=== PATIENT | female | born 2005 | race Two or more races ===

== ENCOUNTER 2025-02-27 07:23 | Outpatient (CLI) | payer BC ==
--- NOTE | 2025-03-01 06:11 | DVH ---
Procedure: NM GASTRIC EMPTING STUDY Exam Date: 02/27/2025 07:59 AM Reason for study/Clinical History: NAUSEA WITH VOMITING Comparison Study: None Nuclear Medicine Solid Gastric Emptying Study Technique: The patient received an oral administration of 1.1 mCi of technetium 99m sulfur colloid l abeled to boiled eggs eggs as a part of the standardized meal. It took the patient minutes to ingest the meal. No vomiting occurred during ingestion. Images were obtained in the anterior and posterior projection immediately, and at delayed time points to include one, two, and four hours after ingestio n of the meal. Quantitative data was obtained from these images and the geometric mean for percent ga stric retention was determined at multiple time points. Findings/Impression: Percent gastric retention is as follows: One hour 46 % empty 1.5 hours 75% empty
== END 2025-02-27 17:00 | disposition home or self-care (01) ==
LOC: XYW 07:23
DX: K31.89 Other diseases of stomach and duodenum (principal); R11.2 Nausea with vomiting, unspecified
CPT/HCPCS: 78264; A9541